=== PATIENT | female | born 1970 | race Caucasian/White ===

== ENCOUNTER 2017-08-06 11:25 | Emergency (ER) | payer OTHER ==
[2017-08-06 11:52] VITALS: O2SAT 99
[2017-08-06] MEDS ORDERED: Sodium Chloride 0.9% 1,000 ML IV ONE ×2 (11:52→11:56)
[2017-08-06] MEDS ORDERED: Metoprolol Succinate 25 mg XL Tab PO ONE (11:59)
--- NOTE | 2017-08-06 12:00 | C.PDOC ---
History Of Present Illness History was taken via translation scribe: Connie 46 yr old female w/PMhx of hyperthyroidism presents to the ER with complaints of neck pain, palpitations, intermittently for the past several months. Patient states she feels palpitations mostly with exertion, self-limited, improves with rest. Pt admits, was seen by Endocrinology " [place] started on Thyroxine". Pt sts, palpitation became more frequent for past few weeks. Pt denies recent change in dose of her medication. Patient denies fever, chills, headache, dizziness, visual changes, focal deficits, chest pain, SOB, diaphoresis, dyspnea, cough, wheezing, abd. pain, nausea, vomiting, weakness. Ambulate to Ed for evaluation, not in any apparent distress. Time Seen by Provider: 08/06/17 11:42 Chief Complaint (Nursing): ENT Problem History Per: Patient History/Exam Limitations: no limitations Onset/Duration Of Symptoms: Intermittent Episodes, Persistent Past Medical History Reviewed: Historical Data, Nursing Documentation, Vital Signs Vital Signs: Last Vital Signs Temp 98.5 F 08/06/17 13:25 Pulse 90 08/06/17 13:25 Resp 17 08/06/17 13:25 BP 127/65 08/06/17 13:25 Pulse Ox 99 08/06/17 13:48 - Medical History PMH: Hyperthyroidism Family History: States: No Known Family Hx - Social History Hx Alcohol Use: No Hx Substance Use: No - Immunization History Hx Tetanus Toxoid Vaccination: No Hx Influenza Vaccination: No Hx Pneumococcal Vaccination: No Review Of Systems Except As Marked, All Systems Reviewed And Found Negative. Constitutional: Negative for: Fever, Chills Cardiovascular: Positive for: Palpitations. Negative for: Chest Pain Respiratory: Negative for: Shortness of Breath Gastrointestinal: Negative for: Nausea, Vomiting Neurological: Negative for: Weakness, Numbness Physical Exam - Physical Exam Appears: Well, Non-toxic, No Acute Distress Skin: Warm, Dry, No Rash Head: Normacephalic Eye(s): bilateral: PERRL Nose: No Flaring Oral Mucosa: Moist, No Drooling Throat: No Erythema, No Exudate, No Drooling Neck: Trachea Midline, No Trachea Deviated, Supple Chest: Symmetrical, No Tenderness Cardiovascular: Rhythm Regular, No Murmur, No JVD, Other ((-) carotid bruits B/L ) Respiratory: No Rales, No Rhonchi, No Stridor, No Wheezing Gastrointestinal/Abdominal: Soft, No Tenderness, No Distention, No Guarding Back: No CVA Tenderness Extremity: No Pedal Edema, No Deformity, No Swelling Neurological/Psych: Oriented x3, Normal Speech, Normal Cognition, Normal Motor ED Course And Treatment - Laboratory Results Result Diagrams: 08/06/17 12:15 08/06/17 12:15 Lab Interpretation: Abnormal (Thyroid function) Urine POC: Negative ECG: Interpreted By Me, Viewed By Me ECG Rhythm: Sinus Tachycardia Interpretation Of ECG: Sinus tachy@101/min, NAD, no acute T wave or ST-T changes. O2 Sat by Pulse Oximetry: 99 (RA) Pulse Ox Interpretation: Normal - Radiology CXR: Interpreted by Me, Viewed By Me CXR Interpretation: Yes: No Acute Disease Progress Note: Discharges explained via translation help leonora Rosales. On re- eval, pt is afebrile, hemodynamicaly stable. Pt reports, " flees better". Non- toxic, tolerate PO well in ED. PulseOx 99% RA. ENT: no acute findings. Neck: Supple, (-) JVD, (-) carotid bruits B/L. Lungs: CTA B/L, BS equal B/L. CVS: (+ )S1S2, reg, (-) murmur. Abd: benign. Back: (-) CVA Tenderness. Extr: (-) pedal edema. Neurologicaly intact. case discussed with ED attending , diagnostics review, discharge with outpt f/u recommend at present time. results review and discussed with pt. Pt has clinical findings c/w palpitation , hx of hyperthyroidism. No evidence of thyroid storm. ref. to f/u with PMD, Endocrinology in 2-3 days for re-eval. return to ED if any worsening or new changes. Pt understand and agrees with discharges. Medical Decision Making Medical Decision Making: PLAN: * CXR * EKG * Troponin * D-Dimer * CBC * CMP * BNP * Urinalysis * Toprol PO * Sodium Chloride IV Disposition Counseled Patient/Family Regarding: Studies Performed, Diagnosis, Need For Followup, Rx Given - Disposition Referrals: [facility] [Outside] [facility] [Outside] Disposition: HOME/ ROUTINE Disposition Time: 13:22 Condition: STABLE Additional Instructions: Take medication as prescribed daily Follow up with PMD, Endocrinology in 2-3 days for re-evaluation. Return to ED if any worsening or new changes. Prescriptions: Metoprolol Tartrate [Lopressor] 25 mg PO DAILY #30 tab Instructions: Palpitations (ED), Hyperthyroidism (ED) Forms: [employer] (Latvian) - Clinical Impression Clinical Impression: Palpitation, Hyperthyroidism - PA / CUSTOMER CARE MANAGER / Resident Statement MD/DO has reviewed & agrees with the documentation as recorded. - Scribe Statement The provider has reviewed the documentation as recorded by the Scribe Connie Silverman All medical record entries made by the Ismaibaugustin were at my direction and personally dictated by me. I have reviewed the chart and agree that the record accurately reflects my personal performance of the history, physical exam, medical decision making, and the department course for this patient. I have also personally directed, reviewed, and agree with the discharge instructions and disposition.
[2017-08-06 12:26] LABS: BASO # 0.1 K/uL (0.0-0.2); BASO % 0.6 % (0.0-2.0); EOS % 0.5 % (0.0-4.0); HEMATOCRIT 38.3 % (34.0-47.0); LYMPH # 2.7 K/uL (1.0-4.3); LYMPH % 31.3 % (20.0-40.0); MEAN CELL VOLUME 73.8 fL (81.0-99.0); MEAN CORPUSCULAR HEMOGLOBIN 23.7 pg (27.0-31.0); MEAN CORPUSCULAR HGB CONC 32.1 g/dL (33.0-37.0); MEAN PLATELET VOLUME 8.6 fL (7.2-11.7); MONO # 0.6 K/uL (0.0-0.8); MONO % 6.5 % (0.0-10.0); RED CELL DISTRIBUTION WIDTH 13.6 % (11.5-14.5); WHITE BLOOD COUNT 8.5 K/uL (4.8-10.8)
[2017-08-06 12:33] LABS: BLOOD UREA NITROGEN 14 mg/dL (7-17); CARBON DIOXIDE 23 mmol/L (22-30); CHLORIDE 103 mmol/L (98-107); GFR AFRICAN-AMERICAN > 60; GLUCOSE,RANDOM 115 mg/dL (65-105); POTASSIUM 3.7 mmol/L (3.6-5.2); SODIUM 140 mmol/L (132-148)
[2017-08-06 12:34] LABS: ALKALINE PHOSPHATASE 81 U/L (38-126); ALT/SGPT 31 U/L (9-52); AST/SGOT 22 U/L (14-36); BILIRUBIN,TOTAL 0.5 mg/dL (0.2-1.3); CALCIUM 9.4 mg/dl (8.6-10.4); MAGNESIUM 1.9 mg/dL (1.6-2.3); PHOSPHOROUS 2.3 mg/dL (2.5-4.5); TOTAL PROTEIN 7.6 g/dL (6.3-8.3)
[2017-08-06 12:43] LABS: INR 1.1; PARTIAL THROMBOPLASTIN TIME 32 SECONDS (21-34)
[2017-08-06 12:45] LABS: RBC URINE 2 /hpf (0-3); URINE BILIRUBIN NEGATIVE (NEGATIVE); URINE BLOOD NEGATIVE (NEGATIVE); URINE COLOR Yellow (YELLOW); URINE GLUCOSE (UA) NORMAL (Normal); URINE KETONE NEGATIVE (NEGATIVE); URINE LEUKOCYTE ESTERASE 1+ Leu/uL (Negative); URINE PROTEIN NEGATIVE (NEGATIVE); URINE UROBILINOGEN NORMAL mg/dL (0.2-1.0); WBC URINE 4 /hpf (0-5)
[2017-08-06 13:02] LABS: THYROID STIMULATING HORMONE < 0.02 mIU/L (0.46-4.68)
[2017-08-06 13:26] VITALS: BP 127/65; PULSE 90; RESP 17; TEMP 98.5
--- NOTE | 2017-08-06 13:51 | RAD ---
HISTORY: chest pain COMPARISON: No prior. TECHNIQUE: Chest PA and lateral FINDINGS: LUNGS: No active pulmonary disease. PLEURA: No significant pleural effusion identified. No pneumothorax apparent. CARDIOVASCULAR: Normal. OSSEOUS STRUCTURES: No significant abnormalities. VISUALIZED UPPER ABDOMEN: Normal. OTHER FINDINGS: None. IMPRESSION: No active disease.
--- NOTE | 2017-08-09 17:16 | CARD ---
APPROVED REPORT EKG Measurement Heart [id number] <Conclusion> Sinus tachycardia Otherwise normal ECG
== END 2017-08-06 13:30 | disposition home or self-care (01) ==
LOC: C.ER 11:25
DX: R00.2 Palpitations (principal); E05.90 Thyrotoxicosis, unspecified without thyrotoxic crisis or storm

== ENCOUNTER 2017-10-30 11:14 | Emergency (ER) | payer OTHER ==
[2017-10-30 11:19] VITALS: BP 138/80; PULSE 98; RESP 20; TEMP 98.1; O2SAT 99
--- NOTE | 2017-10-30 11:44 | C.PDOC ---
Time Seen by Provider: 10/30/17 11:26 Chief Complaint (Nursing): Breast Problem Past Medical History Vital Signs: Last Vital Signs Temp 98.1 F 10/30/17 11:18 Pulse 98 H 10/30/17 11:18 Resp 20 10/30/17 11:18 BP 138/80 10/30/17 11:18 Pulse Ox 99 10/30/17 11:18 - Medical History PMH: Hyperthyroidism - Social History Hx Alcohol Use: No Hx Substance Use: No - Immunization History Hx Tetanus Toxoid Vaccination: No Hx Influenza Vaccination: No Hx Pneumococcal Vaccination: No ED Course And Treatment O2 Sat by Pulse Oximetry: 99 Disposition - Disposition Forms: N42 (Vietnamese)
--- NOTE | 2017-10-30 11:46 | C.PDOC ---
History Of Present Illness 47yo female with a history of hyperthyroidism presents to the ED complaining of right breast pain that radiates from the nipple to her back, for the past 2 days. Patient denies erythema, edema, nipple discharge, and fever. Time Seen by Provider: 10/30/17 11:26 Chief Complaint (Nursing): Breast Problem History Per: Patient History/Exam Limitations: no limitations Onset/Duration Of Symptoms: Days Current Symptoms Are (Timing): Still Present Location: right breast Past Medical History Reviewed: Historical Data, Nursing Documentation, Vital Signs Vital Signs: Last Vital Signs Temp 98.1 F 10/30/17 11:18 Pulse 98 H 10/30/17 11:18 Resp 20 10/30/17 11:18 BP 138/80 10/30/17 11:18 Pulse Ox 99 10/30/17 11:52 - Medical History PMH: Hyperthyroidism Family History: States: No Known Family Hx - Social History Hx Alcohol Use: No Hx Substance Use: No - Immunization History Hx Tetanus Toxoid Vaccination: No Hx Influenza Vaccination: No Hx Pneumococcal Vaccination: No Review Of Systems Constitutional: Negative for: Fever Cardiovascular: Negative for: Chest Pain Musculoskeletal: Positive for: Other (right breast pain) Physical Exam - Physical Exam Appears: Well Skin: Normal Color Eye(s): bilateral: Normal Inspection Neck: Normal Chest: Tenderness (mild tenderness to palpation on lateral aspect of right breast from nipple to axilla, no discoloration) Cardiovascular: Rhythm Regular Respiratory: Normal Breath Sounds ED Course And Treatment O2 Sat by Pulse Oximetry: 99 Disposition - Disposition Referrals: [facility] [Outside] Disposition: HOME/ ROUTINE Condition: STABLE Prescriptions: Ibuprofen [Motrin Tab] 600 mg PO TID PRN #15 tab PRN Reason: Pain, Mild (1-3) Forms: [employer] (Luxembourgish) - Clinical Impression Clinical Impression: Contusion, Pain of breast - Scribe Statement The provider has reviewed the documentation as recorded by the Lucia Roa Provider Attestation: All medical record entries made by the Ismaibaugustin were at my direction and personally dictated by me. I have reviewed the chart and agree that the record accurately reflects my personal performance of the history, physical exam, medical decision making, and the department course for this patient. I have also personally directed, reviewed, and agree with the discharge instructions and disposition.
== END 2017-10-30 12:00 | disposition home or self-care (01) ==
LOC: C.ER 11:14
DX: S20.01XA Contusion of right breast, initial encounter (principal); X58.XXXA Exposure to other specified factors, initial encounter; N64.4 Mastodynia

== ENCOUNTER 2018-03-11 11:31 | Emergency (ER) | payer OTHER ==
[2018-03-11 11:42] VITALS: BP 136/84; PULSE 78; RESP 18; TEMP 98.2; O2SAT 98
--- NOTE | 2018-03-11 12:05 | C.PDOC ---
History Of Present Illness 47 year old female presents to the emergency department requesting referral for an ENT. Patient complains of a sore throat for the past five to six years. 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 Patient denies weight loss, fever, or any new symptoms. REQUESTING REFERRAL FOR ENT. CO SORE THROAT X 5-6 YEARS. 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 NO WT LOSS, FEVER, OR NEW SX. EXAM NARD APPEARS COMFORTABLE HEENT NO SWELLING, ERYTHEMA EXUDATE. NO DROOLING, STRIDOR. UVULA MIDLINE. VOICE NO MUFFLING, GROSS ABN REMAINDER NEG Time Seen by Provider: 03/11/18 11:57 Chief Complaint (Nursing): ENT Problem History Per: Patient Onset/Duration Of Symptoms: Other (5-6 years) Location Of Pain: Throat Past Medical History Reviewed: Historical Data, Nursing Documentation, Vital Signs Vital Signs: Last Vital Signs Temp 98.2 F 03/11/18 11:38 Pulse 78 03/11/18 11:38 Resp 18 03/11/18 11:38 BP 136/84 03/11/18 11:38 Pulse Ox 98 03/11/18 12:07 - Medical History PMH: HTN, Hyperthyroidism (not sure) Surgical History: No Surg Hx Family History: States: No Known Family Hx - Social History Hx Alcohol Use: No Hx Substance Use: No - Immunization History Hx Tetanus Toxoid Vaccination: No Hx Influenza Vaccination: No Hx Pneumococcal Vaccination: No Review Of Systems Except As Marked, All Systems Reviewed And Found Negative. ENT: Positive for: Throat Pain Physical Exam - Physical Exam Appears: Non-toxic, No Acute Distress, Other (appears comfortable) Head: No Swelling Oral Mucosa: Moist Throat: No Erythema, No Exudate, No Drooling, Other (no swelling, uvula midline. No voice muffling or other gross abnormalities.) Cardiovascular: Rhythm Regular Respiratory: No Stridor, Other (NARD) ED Course And Treatment O2 Sat by Pulse Oximetry: 98 (RA) Pulse Ox Interpretation: Normal Disposition Counseled Patient/Family Regarding: Diagnosis, Need For Followup - Disposition Referrals: [facility] [Outside] [facility] [Outside] Ryan Doan MD [Staff Provider] - Disposition: HOME/ ROUTINE Disposition Time: 12:06 Condition: GOOD Additional Instructions: CALL ROCK LOADER NUMBER FOR ASSISTANCE IN CLINIC APPOINTMENT. Instructions: Sore Throat, Adult (DC) Forms: [employer] (Irish) - Clinical Impression Clinical Impression: Chronic throat pain - Scribe Statement The provider has reviewed the documentation as recorded by the Scribe (Enoc Omer) Provider Attestation: All medical record entries made by the Scribe were at my direction and personally dictated by me. I have reviewed the chart and agree that the record accurately reflects my personal performance of the history, physical exam, medical decision making, and the department course for this patient. I have also personally directed, reviewed, and agree with the discharge instructions and disposition.
== END 2018-03-11 12:11 | disposition home or self-care (01) ==
LOC: C.ER 11:31
DX: J02.9 Acute pharyngitis, unspecified (principal)

== ENCOUNTER 2018-05-22 09:50 | Emergency (ER) | payer OTHER ==
[2018-05-22 09:55] VITALS: BP 146/79; PULSE 100; RESP 18; TEMP 98.4; O2SAT 99
--- NOTE | 2018-05-22 10:58 | C.PDOC ---
History Of Present Illness 47 y/o female presents to ED with c/o sore throat for 4 years and bilateral breast tenderness for 4 months. Patient states she thinks she is diabetic because she had finger stick of 250 "a few weeks ago" denies polyuria/ polydypsia. Patient denies cough, fever, breast drainage, trauma or any other complaints at this time. Time Seen by Provider: 05/22/18 10:11 Chief Complaint (Nursing): ENT Problem History Per: Patient History/Exam Limitations: no limitations Onset/Duration Of Symptoms: Days Current Symptoms Are (Timing): Still Present Past Medical History Reviewed: Historical Data, Nursing Documentation, Vital Signs Vital Signs: Last Vital Signs Temp 98.4 F 05/22/18 09:54 Pulse 100 H 05/22/18 09:54 Resp 18 05/22/18 09:54 BP 146/79 05/22/18 09:54 Pulse Ox 99 05/22/18 11:59 - Medical History PMH: HTN, Hyperthyroidism (not sure) Surgical History: No Surg Hx Family History: States: No Known Family Hx - Social History Hx Alcohol Use: No Hx Substance Use: No - Immunization History Hx Tetanus Toxoid Vaccination: No Hx Influenza Vaccination: No Hx Pneumococcal Vaccination: No Review Of Systems Constitutional: Negative for: Fever, Chills ENT: Positive for: Throat Pain Respiratory: Negative for: Cough, Shortness of Breath Gastrointestinal: Negative for: Nausea, Vomiting Musculoskeletal: Positive for: Other (breast tenderness) Skin: Negative for: Rash Physical Exam - Physical Exam Appears: Non-toxic, No Acute Distress Skin: Warm, Dry, No Rash Head: Atraumatic, Normacephalic Eye(s): bilateral: Normal Inspection Ear(s): Bilateral: Normal Oral Mucosa: Moist Throat: Erythema, No Exudate, No Drooling Neck: Normal ROM, Supple Cardiovascular: Rhythm Regular Respiratory: Normal Breath Sounds, No Rales, No Rhonchi, No Wheezing Gastrointestinal/Abdominal: Soft, No Tenderness, No Guarding, No Rebound Neurological/Psych: Oriented x3, Normal Speech ED Course And Treatment - Laboratory Results Lab Interpretation: Normal (POC 113 normal (NOT diabetic)) O2 Sat by Pulse Oximetry: 99 (RA) Pulse Ox Interpretation: Normal Medical Decision Making Medical Decision Making: chronic sore throat typical GERD s/s mild pharyngeal chronic erythema Start PPI GERD precausions opt f/u w Clinic/GI/ENT Breast tenderness x 4 mo Clinic f/u, consider Mammo ? DM pt claims to have had FS 250 @ home "a few weeks ago" FS normal now AFTER breakfast NO s/s of polyuria/polydypsia LOW susp of DM Will NOT start DM meds now. Disposition Doctor Will See Patient In The: Office Counseled Patient/Family Regarding: Studies Performed, Diagnosis - Disposition Referrals: [facility] [Outside] [facility] [Outside] [facility] [[facility]] Disposition: HOME/ ROUTINE Disposition Time: 10:58 Condition: GOOD Additional Instructions: GERD: Take Protonix 20 mg daily (in the morning) to lower stomach acid and treat GERD Maalox 30 cc's (one tablespoon) 4-5x/day as needed Follow-up with GI/ENT as needed Diabetes: There is NO s/s of Diabetes now FS 113 Breast Tenderness: consider outpatient DOCUMENT IMAGE TECHNICIAN eval and mammogram as needed. Instructions: Acid Reflux (Gastroesophageal Reflux Disease), Adult (DC) Forms: [employer] (Serbian) - Clinical Impression Clinical Impression: Sore throat - Scribe Statement The provider has reviewed the documentation as recorded by the Ismaibaugustin Blanton All medical record entries made by the Lucia were at my direction and personally dictated by me. I have reviewed the chart and agree that the record accurately reflects my personal performance of the history, physical exam, medical decision making, and the department course for this patient. I have also personally directed, reviewed, and agree with the discharge instructions and disposition.
== END 2018-05-22 11:06 | disposition home or self-care (01) ==
LOC: C.ER 09:50
DX: J02.9 Acute pharyngitis, unspecified (principal)